=== PATIENT | male | born 1980 | race Two or more races ===

== ENCOUNTER 2019-03-31 00:03 | Emergency (ER) | payer SELFPAY ==
[~2019-03-31] VITALS: Ht 182.9 cm; Wt 68.8 kg
[2019-03-31] MEDS ORDERED: DIAZEPAM 5 MG TABLET PO ONE (03:00)
[2019-03-31] MEDS ORDERED: KETOROLAC 30 MG/1 ML IM ONE (03:00)
[2019-03-31] MEDS ORDERED: ACETAMINOPHEN 500 MG TABLET PO ONE (03:00)
[2019-03-31] MEDS ORDERED: LIDODERM 5% PATCH TD ONE ×2 (03:00→03:09)
[2019-03-31] MEDS ORDERED: DIAZEPAM 5 MG TABLET ONE (03:09)
[2019-03-31] MEDS ORDERED: ACETAMINOPHEN 500 MG TABLET ONE (03:09)
[2019-03-31] MEDS ORDERED: KETOROLAC 30 MG/1 ML ONE (03:09)
--- NOTE | 2019-03-31 03:17 | NUR ---
SHIRIN RN: PT MEDICATED PER EMAR. 5 RIGHTS ADDRESSED. XRAY AT BEDSIDE.
--- NOTE | 2019-03-31 03:55 | NUR ---
Patient states a tv fell onto him and he landed on his back. No deformities, redness, or swelling noted. Patient complains of mid back pain at a 6/10. Lidocaine patch applied.
--- NOTE | 2019-03-31 04:44 | NUR ---
Patient resting comfortably with even and unlabored respirations.
[2019-03-31 05:12] VITALS: BP 160/102
== END 2019-03-31 06:02 | disposition home or self-care (01) ==
LOC: ED 06:01
DX: G89.11 Acute pain due to trauma (principal); R07.89 Other chest pain; R10.11 Right upper quadrant pain; R10.12 Left upper quadrant pain; M54.9 Dorsalgia, unspecified; W18.30XA Fall on same level, unspecified, initial encounter; Y93.89 Activity, other specified; Y92.89 Other specified places as the place of occurrence of the external cause; Y99.8 Other external cause status
CPT/HCPCS: 71046; 72072; 72110; 96372; 99283; J1885